=== PATIENT | female | born 1960 | race Two or more races ===

== ENCOUNTER 2017-12-28 21:46 | Emergency (ER) | payer SELFPAY ==
[~2017-12-28] VITALS: Ht 154.9 cm; Wt 81.6 kg
[2017-12-28 21:50] VITALS: BP 119/67
--- NOTE | 2017-12-28 22:00 | NUR ---
BIB SON C/O RUQ ABD PAIN SINCE SUNDAY. - N/V/D . AWAITING FOR MD BARNES. VSS. FAMILY MEMBER RE DON AT . SAFETY AND COMFORT MEASURES PROVIDED. WILL MONITOR.
--- NOTE | 2017-12-28 22:26 | NUR ---
IV ACCESS STARTED. BLOOD DRAWN FOR LABS.
== END 2017-12-28 22:39 | disposition home or self-care (01) ==
LOC: ER 21:49
DX: B02.9 Zoster without complications (principal)
CPT/HCPCS: 99284; A4606; Z7610